=== PATIENT | female | born 1935 | race African-American/Black ===

== ENCOUNTER 2019-02-18 12:27 | Emergency (ER) | payer MEDICARE, MEDICAID ==
[~2019-02-18 12:27] MED LIST: AMLO5TAB13 PO; DONE10TA40 PO; LISI-275 PO; MET25T PO; PRAV20TA3 PO
[2019-02-18 13:03] LABS: Urine WBC None Seen /hpf (0 - 5)
[2019-02-18 13:26] LABS: Urine Bacteria FEW /hpf (None Seen); Urine Blood Negative /uL (Negative); Urine Specific Gravity 1.004 (1.001-1.035)
[2019-02-18 13:32] LABS: Basophils # (auto) 0.1 uL; Basophils % (auto) 1.3 % (0.0-2.0); Eosinophils # (auto) 0.2 uL; Eosinophils % (auto) 3.1 % (0.0-7.0); Hematocrit 42.7 % (36.0-46.0); Hemoglobin 14.1 g/dL (12.2-16.2); Lymphocytes # (auto) 2.3 uL; Lymphocytes % (auto) 37.3 % (10.0-50.0); Mean Corpuscular Hemoglobin 31.2 pg (28.0-32.0); Mean Corpuscular Volume 94.6 fL (80.0-100.0); Monocytes # (auto) 0.4 uL; Monocytes % (auto) 6.3 % (0.0-12.0); Neutrophils # (auto) 3.2 uL; Nucleated Red Blood Cells % 0.1 %; Platelet Count (auto) 157 10^3/uL (140-450); Red Blood Cells 4.52 10^6/uL (4.0-5.20); Red Cell Distribution Width 14.3 % (11.8-14.3); White Blood Cell 6.1 10^3/uL (4.4-10.8)
[2019-02-18 13:49] LABS: Alanine Aminotransferase 11 U/L (13-56); Albumin 3.8 g/dL (3.4-5.0); Anion Gap 6 (5-15); Aspartate Aminotransferase 17 U/L (15-37); BUN/Creatinine Ratio 11.5; Blood Urea Nitrogen 10 mg/dL (7-18); Carbon Dioxide 25 mmol/L (21-32); Chloride 105 mmol/L (98-107); GFR African American 80 mL/min; GFR Non-African American 66 mL/min; Glucose 106 mg/dL (74-106); Magnesium 2.2 mg/dL (1.6-2.6); Potassium 3.8 mmol/L (3.5-5.1); Sodium 136 mmol/L (136-145)
[2019-02-18 13:53] LABS: Alkaline Phosphatase 56 U/L (45-117); Bilirubin, Total 0.3 mg/dL (0.2-1.0); Total Protein 8.6 g/dL (6.4-8.2)
[2019-02-18 15:41] VITALS: BP 148/73
== END 2019-02-18 15:46 | disposition home or self-care (01) ==
LOC: ER 12:35
DX: K80.20 Calculus of gallbladder without cholecystitis without obstruction (principal); K59.00 Constipation, unspecified; F03.90 Unspecified dementia, unspecified severity, without behavioral disturbance, psychotic disturbance, mood disturbance, and anxiety; E78.5 Hyperlipidemia, unspecified; Z95.1 Presence of aortocoronary bypass graft; Z86.19 Personal history of other infectious and parasitic diseases; Z88.2 Allergy status to sulfonamides; Z88.6 Allergy status to analgesic agent
CPT/HCPCS: 36415; 74176; 80053; 81001; 83735; 85025; 93005

== ENCOUNTER 2020-04-29 15:00 | Inpatient (IN) | payer MEDICARE, MEDICAID ==
[2020-04-29] VITALS (15 sets, daily range): BP systolic 95–140; BP diastolic 44–71
[~2020-04-29] VITALS: Ht 162.6 cm; Wt 53.7 kg
[~2020-04-29 15:00] MED LIST changes: -AMLO5TAB13 PO; +AMLO5TAB15 PO
[2020-04-29] MEDS ORDERED: ETOMIDATE (2MG/ML) 20ML VIAL IV ONE ×2 (15:11→17:30)
[2020-04-29] MEDS ORDERED: SUCCINYLCHOLINE CHLORIDE 20 MG/ML 10ML VIAL IV ONE ×2 (15:13→17:30)
[2020-04-29] MEDS ORDERED: MIDAZOLAM DRIP 50 mg/50mL 50 ML IV ONE (15:31)
[2020-04-29] MEDS ORDERED: NOREPINEPHRINE 8 MG/250ML KIT 250 ML IV ONE (15:33)
[2020-04-29] MEDS: MIDAZOLAM DRIP 50 mg/50mL 50 ML IV SCH ×2 (15:40→21:55)
[2020-04-29] MEDS: NOREPINEPHRINE 8 MG/250ML KIT 250 ML IV SCH (15:40)
[2020-04-29] MEDS ORDERED: SODIUM CHLORIDE 0.9% 1,000 ML IVB ONE (16:01)
[2020-04-29] MEDS ORDERED: cefTRIAXone 1GM/50ML D5W 50 ML IV ONE (16:15)
[2020-04-29 16:28] LABS: Urine Bacteria NONE SEEN /hpf (None Seen); Urine Blood Negative /uL (Negative); Urine Budding Yeast MANY /hpf (None Seen); Urine Mucus FEW (None Seen); Urine Specific Gravity 1.015 (1.001-1.035); Urine WBC 7 /hpf (0 - 5)
[2020-04-29 16:39] LABS: Amphetamine Screen, Urine NEGATIVE (NEGATIVE); Barbiturate Scree,Urine NEGATIVE (NEGATIVE); Benzodiazephine Screen, Urine NEGATIVE (NEGATIVE); Cannabinoid Screen, Urine NEGATIVE (NEGATIVE); Cocaine Screen, Urine NEGATIVE (NEGATIVE); Opiate Scree,Urine POSITIVE (NEGATIVE); Phencyclidine Screen, Urine NEGATIVE (NEGATIVE)
[2020-04-29 16:41] LABS: Basophils # (auto) 0 10 ^3/uL (0-0.2); Basophils % (auto) 0.5 % (0.0-2.0); Eosinophils # (auto) 0 10 ^3/uL (0-0.8); Eosinophils % (auto) 0.2 % (0.0-7.0); Hemoglobin 8.1 g/dL (12.2-16.2); Lymphocytes # (auto) 1.1 10 ^3/uL (0.4-5.4); Mean Corpuscular Volume 84.5 fL (80.0-100.0); Monocytes # (auto) 0.5 10 ^3/uL (0-1.3)
[2020-04-29 16:45] LABS: Hematocrit 26.2 % (36.0-46.0); Lymphocytes % (auto) 11.4 % (10.0-50.0); Mean Corpuscular Hemoglobin 26.3 pg (28.0-32.0); Mean Corpuscular Hgb Conc. 31.1 g/dL (32.0-36.0); Monocytes % (auto) 5.5 % (0.0-12.0); Neutrophils # (auto) 7.8 10 ^3/uL (1.6-8.6); Neutrophils % (auto) 82.4 % (37.0-80.0); Platelet Count (auto) 194 10^3/uL (140-450); Red Cell Distribution Width 17.4 % (11.8-14.3); White Blood Cell 9.5 10^3/uL (4.4-10.8)
[2020-04-29 17:01] LABS: Albumin 2.2 g/dL (3.4-5.0); Anion Gap 8 (5-15); Blood Alcohol < 3.0 mg/dL (0-5); Blood Urea Nitrogen 19 mg/dL (7-18); Calcium 8.4 mg/dL (8.5-10.1); Carbon Dioxide 21 mmol/L (21-32); Chloride 104 mmol/L (98-107); Glucose 146 mg/dL (74-106); Magnesium 2.6 mg/dL (1.6-2.6); Potassium 4.9 mmol/L (3.5-5.1); Sodium 133 mmol/L (136-145)
[2020-04-29 17:05] LABS: Lactic Acid w/Reflex 3.8 mmol/L (0.4-2.0)
[2020-04-29 17:06] LABS: INR 1.28 (0.9-1.15); Partial Thromboplastin Time 25.4 sec (23.64-32.05)
[2020-04-29 17:09] LABS: Alanine Aminotransferase 23 U/L (13-56); Alkaline Phosphatase 84 U/L (45-117); Aspartate Aminotransferase 106 U/L (15-37); BUN/Creatinine Ratio 9.1; Bilirubin, Total 0.9 mg/dL (0.2-1.0); CRP High Sensitivity 7.57 mg/dL (< 0.3); GFR African American 29 mL/min; GFR Non-African American 24 mL/min; Lactate Dehydrogenase 289 U/L (84-246); Total Protein 7.7 g/dL (6.4-8.2)
[2020-04-29] MEDS ORDERED: VANCOMYCIN PER PHARMACY 1,000 MG IV SCH (17:30)
[2020-04-29] MEDS ORDERED: NITROGLYCERIN 0.4 MG SL TAB SL PRN (17:30)
[2020-04-29] MEDS ORDERED: SODIUM CHLORIDE 0.9% 1,000 ML IV ONE (17:30)
[2020-04-29] MEDS ORDERED: SODIUM CHLORIDE 0.9% 1,500 ML IV ONE (17:30)
[2020-04-29] MEDS ORDERED: MORPHINE SULF INJ 2 MG/ML SYRINGE 1ML IV PRN (17:30)
[2020-04-29] MEDS ORDERED: PIPERACILLIN-TAZOB 3.375GM 3.375 GM in D5W 5% 100 ML IV SCH (18:00)
[2020-04-29] MEDS: PIPERACILLIN-TAZOB 3.375GM 100 ML IV SCH ×2 (18:00→23:48)
[2020-04-29] MEDS ORDERED: VANCOMYCIN 750mg/250ml 250 ML IV ONE (21:00)
[2020-04-29] MEDS ORDERED: FAMOTIDINE (10MG/ML) 2ML VL IV SCH (22:00)
[2020-04-29 22:03] LABS: Lactic Acid w/Reflex 5.3 mmol/L (0.4-2.0)
[2020-04-29] MEDS ORDERED: ENOXAPARIN SOD 100 MG/1 ML SYRINGE SC ONE (22:30)
[2020-04-29] MEDS ORDERED: LACTATED RINGER'S 1,500 ML IV ONE (22:30)
[2020-04-29] MEDS: SODIUM CHLORIDE 0.9% 1,000 ML IV SCH (22:30)
[2020-04-29] MEDS ORDERED: MORPHINE SULFATE 4 MG/ML SYR/VIAL IV PRN (22:30)
[2020-04-29] MEDS ORDERED: ACETAMINOPHEN 325 MG TAB PO PRN (22:30)
[2020-04-29] MEDS ORDERED: FUROSEMIDE 20 MG/2 ML VIAL IV ONE (22:45)
[2020-04-29] MEDS: HYDROCORTISONE SOD SUCC 100 MG/2ML INJ VIAL IV SCH (23:47)
[2020-04-30] VITALS (106 sets, daily range): BP systolic 79–156; BP diastolic 43–72
[2020-04-30 00:24] LABS: Lactic Acid w/Reflex 5.8 mmol/L (0.4-2.0)
[2020-04-30] MEDS ORDERED: ASPI81CH43 PO (01:29)
[2020-04-30] MEDS ORDERED: ACET300T4 PO (01:29)
[2020-04-30] MEDS: NOREPINEPHRINE 8 MG/250ML KIT 250 ML IV SCH (02:10)
[2020-04-30] MEDS: SODIUM CHLORIDE 0.9% 1,000 ML IV SCH (03:30)
[2020-04-30 05:49] LABS: Basophils # (auto) 0 10 ^3/uL (0-0.2); Eosinophils # (auto) 0 10 ^3/uL (0-0.8); Eosinophils % (auto) 0.1 % (0.0-7.0); Hematocrit 26.7 % (36.0-46.0); Hemoglobin 8.3 g/dL (12.2-16.2); Lymphocytes # (auto) 0.5 10 ^3/uL (0.4-5.4); Lymphocytes % (auto) 3.9 % (10.0-50.0); Red Cell Distribution Width 17.4 % (11.8-14.3); White Blood Cell 12.4 10^3/uL (4.4-10.8)
[2020-04-30 05:51] LABS: Basophils % (auto) 0.1 % (0.0-2.0); Mean Corpuscular Hemoglobin 25.9 pg (28.0-32.0); Mean Corpuscular Hgb Conc. 31.1 g/dL (32.0-36.0); Mean Corpuscular Volume 83.3 fL (80.0-100.0); Monocytes # (auto) 0.3 10 ^3/uL (0-1.3); Monocytes % (auto) 2.8 % (0.0-12.0); Neutrophils # (auto) 11.5 10 ^3/uL (1.6-8.6); Neutrophils % (auto) 93.1 % (37.0-80.0); Platelet Count (auto) 240 10^3/uL (140-450)
[2020-04-30] MEDS: PIPERACILLIN-TAZOB 3.375GM 100 ML IV SCH (05:55)
[2020-04-30] MEDS: HYDROCORTISONE SOD SUCC 100 MG/2ML INJ VIAL IV SCH ×3 (05:55→18:16)
[2020-04-30] MEDS ORDERED: FUROSEMIDE 20 MG/2 ML VIAL IV SCH (06:00)
[2020-04-30] MEDS: IPRATROPIUM BROM 0.5 MG/2.5ML INH SOL NEB SCH ×5 (06:51→22:20)
[2020-04-30] MEDS ORDERED: SODIUM BICARBONATE 8.4 % INJ 50ML VIAL IV ONE (08:30)
[2020-04-30 08:41] LABS: Albumin 1.7 g/dL (3.4-5.0); BUN/Creatinine Ratio 11.4; Calcium 7.4 mg/dL (8.5-10.1); Magnesium 1.9 mg/dL (1.6-2.6); Potassium 4.9 mmol/L (3.5-5.1)
[2020-04-30 08:44] LABS: Total Protein 6.5 g/dL (6.4-8.2)
[2020-04-30] MEDS ORDERED: FAMOTIDINE (10MG/ML) 2ML VL IV SCH (10:00)
[2020-04-30] MEDS ORDERED: ENOXAPARIN SOD 40 MG/0.4 ML SYRINGE SC SCH (10:00)
[2020-04-30] MEDS: PIPERACILLIN-TAZOB 2.25GM 50 ML IV SCH ×2 (12:38→18:17)
[2020-04-30] MEDS: SODIUM BICARBONATE 50ML VIAL 50 ML in SOD CHL 0.45% 1,000 ML IV SCH (14:47)
[2020-04-30] MEDS: ALBUMIN 25% 100 ML IV SCH ×2 (14:51→22:03)
[2020-04-30 15:12] LABS: Creatinine, Urine 16 mg/dL (30.0-125.0); Sodium Urine 82 mmol/L (40-220)
[2020-04-30] MEDS ORDERED: VANCOMYCIN 1GM/250ML 250 ML IV ONE (16:00)
[2020-04-30 17:51] LABS: Urine Bacteria FEW /hpf (None Seen); Urine Blood TRACE /uL (Negative); Urine Budding Yeast MANY /hpf (None Seen); Urine Hyaline Cast FEW /lpf (0 - 2); Urine Mucus FEW (None Seen); Urine Specific Gravity 1.009 (1.001-1.035); Urine WBC 11 /hpf (0 - 5)
[2020-04-30] MEDS: DexMEDEtomidine 400 MCG in D5W 5% 96 ML IV SCH (19:09)
[2020-05-01] VITALS (112 sets, daily range): BP systolic 86–149; BP diastolic 42–87
[2020-05-01] MEDS: HYDROCORTISONE SOD SUCC 100 MG/2ML INJ VIAL IV SCH ×4 (00:19→18:22)
[2020-05-01] MEDS: PIPERACILLIN-TAZOB 2.25GM 50 ML IV SCH ×4 (00:19→18:22)
[2020-05-01] MEDS: SODIUM BICARBONATE 50ML VIAL 50 ML in SOD CHL 0.45% 1,000 ML IV SCH (01:01)
[2020-05-01] MEDS: IPRATROPIUM BROM 0.5 MG/2.5ML INH SOL NEB SCH ×6 (02:41→22:36)
[2020-05-01 05:09] LABS: Basophils # (auto) 0 10 ^3/uL (0-0.2); Basophils % (auto) 0.1 % (0.0-2.0); Eosinophils # (auto) 0 10 ^3/uL (0-0.8); Lymphocytes # (auto) 0.6 10 ^3/uL (0.4-5.4); Monocytes # (auto) 0.4 10 ^3/uL (0-1.3)
[2020-05-01 05:13] LABS: Hematocrit 20.6 % (36.0-46.0); Lymphocytes % (auto) 5.9 % (10.0-50.0); Mean Corpuscular Hemoglobin 26.2 pg (28.0-32.0); Mean Corpuscular Hgb Conc. 32.4 g/dL (32.0-36.0); Mean Corpuscular Volume 80.7 fL (80.0-100.0); Monocytes % (auto) 4.3 % (0.0-12.0); Neutrophils # (auto) 8.7 10 ^3/uL (1.6-8.6); Neutrophils % (auto) 89.7 % (37.0-80.0); Platelet Count (auto) 130 10^3/uL (140-450); Red Blood Cells 2.56 10^6/uL (4.0-5.20); Red Cell Distribution Width 16.9 % (11.8-14.3); White Blood Cell 9.7 10^3/uL (4.4-10.8)
[2020-05-01 05:21] LABS: Hemoglobin 6.7 g/dL (12.2-16.2)
[2020-05-01 05:29] LABS: Potassium 4.2 mmol/L (3.5-5.1)
[2020-05-01 05:38] LABS: Albumin 2.6 g/dL (3.4-5.0); Bilirubin, Total 0.6 mg/dL (0.2-1.0); Calcium 7.3 mg/dL (8.5-10.1); Total Protein 6.3 g/dL (6.4-8.2)
[2020-05-01] MEDS ORDERED: FUROSEMIDE 20 MG/2 ML VIAL IV ONE ×2 (08:37→08:45)
[2020-05-01] MEDS: ALBUMIN 25% 100 ML IV SCH ×2 (09:45→22:21)
[2020-05-01] MEDS: DexMEDEtomidine 400 MCG in D5W 5% 96 ML IV SCH (11:09)
[2020-05-01] MEDS ORDERED: BUMETANIDE 2.5mg/10ml (0.25 mg/ml) INJ IV ONE (11:45)
[2020-05-01] MEDS ORDERED: SODIUM CHLORIDE LOCK 0 ML ONE (13:01)
[2020-05-01] MEDS ORDERED: LIDOCAINE 2%HCL (LOCAL ANESTH.) INJ 20ML MDV ONE (13:01)
[2020-05-01] MEDS ORDERED: EPINEPHrine HCL 1 MG/1 ML AMP ONE (13:02)
[2020-05-01] MEDS ORDERED: LIDOCAINE HCL 2% TOP JELLY 5ML TOP ONE (13:02)
[2020-05-01] MEDS ORDERED: MIDAZOLAM HCL 1MG/1ML-2 ML VIAL IV ONE (13:45)
[2020-05-01] MEDS ORDERED: fentaNYL CITRATE 100 MCG/2 ML VL IV ONE (13:45)
[2020-05-01] MEDS ORDERED: fentaNYL CITRATE 100 MCG/2 ML VL ONE (13:48)
[2020-05-01] MEDS ORDERED: MIDAZOLAM HCL 5 MG/ML-1ML VIAL ONE (13:48)
[2020-05-01] MEDS: MIDAZOLAM DRIP 50 mg/50mL 50 ML IV SCH (17:20)
[2020-05-01] MEDS: NOREPINEPHRINE 8 MG/250ML KIT 250 ML IV SCH (17:30)
[2020-05-01 18:42] LABS: Hematocrit 34.6 % (36.0-46.0); Hemoglobin 11.6 g/dL (12.2-16.2)
[2020-05-01] MEDS ORDERED: PANTOPRAZOLE 40 MG/10 ML VIAL INJ IV SCH (22:00)
[2020-05-02] VITALS (86 sets, daily range): BP systolic 88–153; BP diastolic 43–91
[2020-05-02] MEDS: PIPERACILLIN-TAZOB 2.25GM 50 ML IV SCH ×4 (00:52→17:56)
[2020-05-02] MEDS: HYDROCORTISONE SOD SUCC 100 MG/2ML INJ VIAL IV SCH ×4 (00:52→17:56)
[2020-05-02] MEDS: IPRATROPIUM BROM 0.5 MG/2.5ML INH SOL NEB SCH ×6 (02:31→22:47)
[2020-05-02 04:34] LABS: Basophils # (auto) 0 10 ^3/uL (0-0.2); Basophils % (auto) 0.1 % (0.0-2.0); Eosinophils # (auto) 0 10 ^3/uL (0-0.8); Hematocrit 33.9 % (36.0-46.0); Hemoglobin 11.1 g/dL (12.2-16.2); Lymphocytes # (auto) 0.3 10 ^3/uL (0.4-5.4); Lymphocytes % (auto) 2.1 % (10.0-50.0); Mean Corpuscular Hemoglobin 26.9 pg (28.0-32.0); Mean Corpuscular Hgb Conc. 32.9 g/dL (32.0-36.0); Mean Corpuscular Volume 81.7 fL (80.0-100.0); Monocytes # (auto) 0.4 10 ^3/uL (0-1.3); Monocytes % (auto) 3.3 % (0.0-12.0); Neutrophils # (auto) 12.4 10 ^3/uL (1.6-8.6); Neutrophils % (auto) 94.5 % (37.0-80.0); Platelet Count (auto) 97 10^3/uL (140-450); Red Blood Cells 4.14 10^6/uL (4.0-5.20); Red Cell Distribution Width 16.5 % (11.8-14.3); White Blood Cell 13.2 10^3/uL (4.4-10.8)
[2020-05-02 05:00] LABS: Albumin 2.8 g/dL (3.4-5.0); BUN/Creatinine Ratio 18.1; Calcium 7.8 mg/dL (8.5-10.1); Potassium 3.9 mmol/L (3.5-5.1)
[2020-05-02 05:04] LABS: Bilirubin, Total 1.7 mg/dL (0.2-1.0); Total Protein 6.5 g/dL (6.4-8.2)
[2020-05-02] MEDS ORDERED: BUMETANIDE 2.5mg/10ml (0.25 mg/ml) INJ IV SCH (10:00)
[2020-05-02] MEDS: PANTOPRAZOLE 40 MG/10 ML VIAL INJ IV SCH (10:30)
[2020-05-02] MEDS: DexMEDEtomidine 400 MCG in D5W 5% 96 ML IV SCH ×2 (11:09→12:08)
[2020-05-02] MEDS: MIDAZOLAM DRIP 50 mg/50mL 50 ML IV SCH (15:30)
[2020-05-02] MEDS: NOREPINEPHRINE 8 MG/250ML KIT 250 ML IV SCH (15:30)
[2020-05-02] MEDS ORDERED: VANCOMYCIN 500 MG in D5W 5% 100 ML IV ONE (16:00)
[2020-05-03] VITALS (89 sets, daily range): BP systolic 88–139; BP diastolic 41–82
[2020-05-03] MEDS: IPRATROPIUM BROM 0.5 MG/2.5ML INH SOL NEB SCH ×6 (03:04→22:44)
[2020-05-03 04:17] LABS: Basophils # (auto) 0 10 ^3/uL (0-0.2); Basophils % (auto) 0.2 % (0.0-2.0); Eosinophils # (auto) 0 10 ^3/uL (0-0.8); Hematocrit 34.1 % (36.0-46.0); Hemoglobin 11.1 g/dL (12.2-16.2); Lymphocytes # (auto) 0.4 10 ^3/uL (0.4-5.4); Lymphocytes % (auto) 5.1 % (10.0-50.0); Mean Corpuscular Hemoglobin 26.5 pg (28.0-32.0); Mean Corpuscular Hgb Conc. 32.5 g/dL (32.0-36.0); Mean Corpuscular Volume 81.7 fL (80.0-100.0); Monocytes # (auto) 0.3 10 ^3/uL (0-1.3); Monocytes % (auto) 3.2 % (0.0-12.0); Neutrophils # (auto) 7.8 10 ^3/uL (1.6-8.6); Neutrophils % (auto) 91.5 % (37.0-80.0); Nucleated Red Blood Cells % 0.1 %; Platelet Count (auto) 70 10^3/uL (140-450); Red Blood Cells 4.18 10^6/uL (4.0-5.20); Red Cell Distribution Width 16.5 % (11.8-14.3); White Blood Cell 8.5 10^3/uL (4.4-10.8)
[2020-05-03 04:34] LABS: INR 1.63 (0.9-1.15)
[2020-05-03 04:39] LABS: Potassium 3.4 mmol/L (3.5-5.1)
[2020-05-03 04:47] LABS: Albumin 2.6 g/dL (3.4-5.0); BUN/Creatinine Ratio 18.8; Bilirubin, Direct 0.7 mg/dL (0-0.2); Calcium 8.3 mg/dL (8.5-10.1); Total Protein 6.1 g/dL (6.4-8.2)
[2020-05-03] MEDS: HYDROCORTISONE SOD SUCC 100 MG/2ML INJ VIAL IV SCH ×4 (05:49→18:30)
[2020-05-03] MEDS: PIPERACILLIN-TAZOB 2.25GM 50 ML IV SCH ×3 (05:49→11:54)
[2020-05-03] MEDS ORDERED: POTASSIUM CHL 20MEQ/100ML 100 ML IV ONE (08:15)
[2020-05-03] MEDS ORDERED: phytonadione 2.5 MG in SODIUM CHL 0.9% 50 ML IV ONE (08:30)
[2020-05-03] MEDS: SODIUM CHLORIDE 0.9% 1,000 ML IV SCH (08:59)
[2020-05-03] MEDS: PANTOPRAZOLE 40 MG/10 ML VIAL INJ IV SCH (10:01)
[2020-05-03] MEDS: MIDAZOLAM DRIP 50 mg/50mL 50 ML IV SCH (17:20)
[2020-05-03] MEDS: NOREPINEPHRINE 8 MG/250ML KIT 250 ML IV SCH (17:24)
[2020-05-03] MEDS: MEROPENEM 500MG IVPB 50 ML IV SCH (21:45)
[2020-05-04] VITALS (97 sets, daily range): BP systolic 105–147; BP diastolic 58–97
[2020-05-04] MEDS: HYDROCORTISONE SOD SUCC 100 MG/2ML INJ VIAL IV SCH ×4 (00:14→18:06)
[2020-05-04] MEDS: IPRATROPIUM BROM 0.5 MG/2.5ML INH SOL NEB SCH ×6 (02:29→22:24)
[2020-05-04 04:16] LABS: Basophils # (auto) 0 10 ^3/uL (0-0.2); Basophils % (auto) 0.1 % (0.0-2.0); Eosinophils # (auto) 0 10 ^3/uL (0-0.8); Lymphocytes # (auto) 0.6 10 ^3/uL (0.4-5.4); Lymphocytes % (auto) 5.1 % (10.0-50.0); Nucleated Red Blood Cells % 0.1 %; Platelet Count (auto) 91 10^3/uL (140-450)
[2020-05-04 04:18] LABS: Hematocrit 39.6 % (36.0-46.0); Hemoglobin 12.9 g/dL (12.2-16.2); Mean Corpuscular Hemoglobin 26.9 pg (28.0-32.0); Mean Corpuscular Hgb Conc. 32.6 g/dL (32.0-36.0); Mean Corpuscular Volume 82.5 fL (80.0-100.0); Monocytes # (auto) 0.5 10 ^3/uL (0-1.3); Monocytes % (auto) 3.9 % (0.0-12.0); Neutrophils # (auto) 10.6 10 ^3/uL (1.6-8.6); Neutrophils % (auto) 90.9 % (37.0-80.0); Red Blood Cells 4.81 10^6/uL (4.0-5.20); Red Cell Distribution Width 16.9 % (11.8-14.3); White Blood Cell 11.6 10^3/uL (4.4-10.8)
[2020-05-04 04:31] LABS: INR 1.33 (0.9-1.15); Partial Thromboplastin Time 31.4 sec (23.64-32.05)
[2020-05-04 04:52] LABS: BUN/Creatinine Ratio 20.8; Calcium 8.7 mg/dL (8.5-10.1); Potassium 3.2 mmol/L (3.5-5.1)
[2020-05-04] MEDS ORDERED: POTASSIUM CHL 20MEQ/100ML 100 ML IV ONE (09:00)
[2020-05-04] MEDS ORDERED: TPN PER PHARMACY 0 ML IV SCH (09:45)
[2020-05-04 10:14] LABS: Magnesium 2.1 mg/dL (1.6-2.6); Phosphorus 5.5 mg/dL (2.5-4.90)
[2020-05-04 10:16] LABS: Pre Albumin 8.5 mg/dL (20.0-40.0)
[2020-05-04] MEDS: MEROPENEM 500MG IVPB 50 ML IV SCH ×2 (10:29→23:00)
[2020-05-04] MEDS: SODIUM CHLORIDE 0.9% 1,000 ML IV SCH ×2 (10:29→17:50)
[2020-05-04] MEDS: PANTOPRAZOLE 40 MG/10 ML VIAL INJ IV SCH ×2 (10:29→22:00)
[2020-05-04] MEDS: VANCOMYCIN 500 MG in D5W 5% 100 ML IV ONE ×2 (10:29→11:01)
[2020-05-04] MEDS: DexMEDEtomidine 400 MCG in D5W 5% 96 ML IV SCH (11:09)
[2020-05-04] MEDS ORDERED: MIDAZOLAM HCL 1MG/1ML-2 ML VIAL ONE (14:11)
[2020-05-04] MEDS: MICAFUNGIN SODIUM 100 MG in SODIUM CHL 0.9% 100 ML IV SCH (15:26)
[2020-05-04] MEDS: POTASSIUM CHL 20MEQ/100ML 100 ML IV SCH ×2 (19:02→23:15)
[2020-05-04] MEDS: NOREPINEPHRINE 8 MG/250ML KIT 250 ML IV SCH (19:02)
[2020-05-04] MEDS: MIDAZOLAM DRIP 50 mg/50mL 50 ML IV SCH (19:02)
[2020-05-04] MEDS: TPN PER PHARMACY IV NR ×5 (20:00)
[2020-05-05] VITALS (65 sets, daily range): BP systolic 108–169; BP diastolic 56–110
[2020-05-05] MEDS: IPRATROPIUM BROM 0.5 MG/2.5ML INH SOL NEB SCH ×6 (02:22→22:08)
[2020-05-05] MEDS: TPN PER PHARMACY IV NR ×5 (04:25)
[2020-05-05 04:45] LABS: INR 1.37 (0.9-1.15); Partial Thromboplastin Time 32.3 sec (23.64-32.05)
[2020-05-05 04:48] LABS: Calcium 8.5 mg/dL (8.5-10.1); Potassium 3.5 mmol/L (3.5-5.1)
[2020-05-05 04:54] LABS: Albumin 2.3 g/dL (3.4-5.0); BUN/Creatinine Ratio 23.6; Bilirubin, Total 1.4 mg/dL (0.2-1.0); Phosphorus 4.8 mg/dL (2.5-4.90); Total Protein 6.1 g/dL (6.4-8.2)
[2020-05-05] MEDS: ACCU-CHEK COMFORT CURVE STRIP VI SCH ×4 (06:00→18:18)
[2020-05-05] MEDS: InsuLIN REG 1unit/0.01ml Soln (100units/ml) SC SCH ×4 (06:00→18:19)
[2020-05-05] MEDS: HYDROCORTISONE SOD SUCC 100 MG/2ML INJ VIAL IV SCH ×4 (06:00→18:37)
[2020-05-05 09:39] LABS: Hepatitis B Surface Antibody Positive
[2020-05-05 09:43] LABS: Basophils # (auto) 0 10 ^3/uL (0-0.2); Basophils % (auto) 0.2 % (0.0-2.0); Eosinophils # (auto) 0 10 ^3/uL (0-0.8); Eosinophils % (auto) 0.1 % (0.0-7.0); Hematocrit 36.5 % (36.0-46.0); Hemoglobin 11.5 g/dL (12.2-16.2); Lymphocytes # (auto) 0.3 10 ^3/uL (0.4-5.4); Lymphocytes % (auto) 3.1 % (10.0-50.0); Mean Corpuscular Hemoglobin 26.2 pg (28.0-32.0); Mean Corpuscular Hgb Conc. 31.5 g/dL (32.0-36.0); Mean Corpuscular Volume 83.1 fL (80.0-100.0); Monocytes # (auto) 0.5 10 ^3/uL (0-1.3); Monocytes % (auto) 5.1 % (0.0-12.0); Neutrophils # (auto) 9.7 10 ^3/uL (1.6-8.6); Neutrophils % (auto) 91.5 % (37.0-80.0); Platelet Count (auto) 81 10^3/uL (140-450); Red Blood Cells 4.39 10^6/uL (4.0-5.20); Red Cell Distribution Width 17.3 % (11.8-14.3); White Blood Cell 10.6 10^3/uL (4.4-10.8)
[2020-05-05] MEDS: PANTOPRAZOLE 40 MG/10 ML VIAL INJ IV SCH ×2 (10:00→22:00)
[2020-05-05] MEDS: MICAFUNGIN SODIUM 100 MG in SODIUM CHL 0.9% 100 ML IV SCH (10:00)
[2020-05-05 10:12] LABS: Hepatitis A Total Antibody Positive
[2020-05-05] MEDS: DexMEDEtomidine 400 MCG in D5W 5% 96 ML IV SCH (11:09)
[2020-05-05] MEDS: MEROPENEM 500MG IVPB 50 ML IV SCH ×2 (11:25→22:00)
[2020-05-05 13:26] LABS: Hepatitis B Surface Antigen Negative (Negative); Hepatitis C Antibody Negative (Negative)
[2020-05-05 13:28] LABS: Hepatitis B Core Total AB Positive
[2020-05-05] MEDS: LORazepam 2MG/ML-1ML VIAL IV PRN (17:03)
[2020-05-05] MEDS: MIDAZOLAM DRIP 50 mg/50mL 50 ML IV SCH (17:20)
[2020-05-05] MEDS: NOREPINEPHRINE 8 MG/250ML KIT 250 ML IV SCH (17:30)
[2020-05-05 18:34] LABS: Lactic Acid w/Reflex 2.2 mmol/L (0.4-2.0)
[2020-05-05] MEDS ORDERED: TPN PER PHARMACY IV NR ×5 (20:00)
[2020-05-06] VITALS (60 sets, daily range): BP systolic 118–161; BP diastolic 63–95
[2020-05-06] MEDS: IPRATROPIUM BROM 0.5 MG/2.5ML INH SOL NEB SCH ×6 (01:53→22:24)
[2020-05-06 05:02] LABS: Basophils # (auto) 0 10 ^3/uL (0-0.2); Basophils % (auto) 0.2 % (0.0-2.0); Eosinophils # (auto) 0 10 ^3/uL (0-0.8); Hematocrit 32.4 % (36.0-46.0); Hemoglobin 10.6 g/dL (12.2-16.2); Lymphocytes # (auto) 0.2 10 ^3/uL (0.4-5.4); Mean Corpuscular Hemoglobin 27.1 pg (28.0-32.0); Mean Corpuscular Hgb Conc. 32.7 g/dL (32.0-36.0); Monocytes # (auto) 0.3 10 ^3/uL (0-1.3); Monocytes % (auto) 3.6 % (0.0-12.0); Neutrophils # (auto) 7.2 10 ^3/uL (1.6-8.6); Neutrophils % (auto) 94.2 % (37.0-80.0); Platelet Count (auto) 68 10^3/uL (140-450); Red Blood Cells 3.91 10^6/uL (4.0-5.20); White Blood Cell 7.6 10^3/uL (4.4-10.8)
[2020-05-06 05:29] LABS: Albumin 2.1 g/dL (3.4-5.0); BUN/Creatinine Ratio 29.2; Bilirubin, Total 1.3 mg/dL (0.2-1.0); Magnesium 1.9 mg/dL (1.6-2.6); Phosphorus 2.8 mg/dL (2.5-4.90); Total Protein 5.9 g/dL (6.4-8.2)
[2020-05-06] MEDS: HYDROCORTISONE SOD SUCC 100 MG/2ML INJ VIAL IV SCH ×4 (06:25→18:00)
[2020-05-06] MEDS: ACCU-CHEK COMFORT CURVE STRIP VI SCH ×4 (06:27→18:00)
[2020-05-06] MEDS: InsuLIN REG 1unit/0.01ml Soln (100units/ml) SC SCH ×4 (06:27→18:00)
[2020-05-06] MEDS ORDERED: POTASSIUM PHOSPHATE 44 MEQ in D5W 5% 250 ML IV ONE (08:30)
[2020-05-06] MEDS: MEROPENEM 500MG IVPB 50 ML IV SCH ×2 (09:14→22:00)
[2020-05-06] MEDS: PANTOPRAZOLE 40 MG/10 ML VIAL INJ IV SCH ×2 (09:14→22:00)
[2020-05-06] MEDS: DexMEDEtomidine 400 MCG in D5W 5% 96 ML IV SCH (11:09)
[2020-05-06] MEDS: MICAFUNGIN SODIUM 100 MG in SODIUM CHL 0.9% 100 ML IV SCH (11:44)
[2020-05-06] MEDS ORDERED: EPINEPHrine HCL 0.5 ML NEB NEB ONE (13:00)
[2020-05-06] MEDS ORDERED: VANCOMYCIN 500 MG in D5W 5% 100 ML IV ONE (16:00)
[2020-05-06] MEDS ORDERED: POTASSIUM CHL 20MEQ/100ML 100 ML IV ONE (16:00)
[2020-05-06] MEDS: MIDAZOLAM DRIP 50 mg/50mL 50 ML IV SCH (17:20)
[2020-05-06] MEDS: NOREPINEPHRINE 8 MG/250ML KIT 250 ML IV SCH (17:30)
[2020-05-06] MEDS ORDERED: TPN PER PHARMACY IV NR ×10 (20:00)
[2020-05-07] VITALS (32 sets, daily range): BP systolic 118–180; BP diastolic 59–96
[2020-05-07] MEDS: IPRATROPIUM BROM 0.5 MG/2.5ML INH SOL NEB SCH ×5 (02:01→22:34)
[2020-05-07 04:35] LABS: Albumin 2.1 g/dL (3.4-5.0); BUN/Creatinine Ratio 30.8; Calcium 8.3 mg/dL (8.5-10.1); Potassium 3.8 mmol/L (3.5-5.1)
[2020-05-07 04:38] LABS: Bilirubin, Total 1.5 mg/dL (0.2-1.0); Total Protein 6.6 g/dL (6.4-8.2)
[2020-05-07 04:49] LABS: Phosphorus 3.2 mg/dL (2.5-4.90)
[2020-05-07] MEDS: InsuLIN REG 1unit/0.01ml Soln (100units/ml) SC SCH ×4 (06:00→17:53)
[2020-05-07] MEDS: HYDROCORTISONE SOD SUCC 100 MG/2ML INJ VIAL IV SCH ×4 (06:00→17:47)
[2020-05-07] MEDS: ACCU-CHEK COMFORT CURVE STRIP VI SCH ×4 (06:49→17:47)
[2020-05-07] MEDS ORDERED: LABETALOL HCL 5 MG/ML 4ML SYRINGE IV ONE ×2 (07:30→07:32)
[2020-05-07] MEDS: LORazepam 2MG/ML-1ML VIAL IV PRN (09:30)
[2020-05-07] MEDS ORDERED: FUROSEMIDE 40 MG/4 ML VIAL ONE (09:42)
[2020-05-07] MEDS ORDERED: FUROSEMIDE 40 MG/4 ML VIAL IV ONE (09:45)
[2020-05-07] MEDS: PANTOPRAZOLE 40 MG/10 ML VIAL INJ IV SCH ×2 (10:15→21:15)
[2020-05-07] MEDS: MICAFUNGIN SODIUM 100 MG in SODIUM CHL 0.9% 100 ML IV SCH (10:18)
[2020-05-07] MEDS ORDERED: VANCOMYCIN 500 MG in D5W 5% 100 ML IV ONE (11:00)
[2020-05-07] MEDS: MEROPENEM 500MG IVPB 50 ML IV SCH ×2 (11:00→21:15)
[2020-05-07] MEDS: DexMEDEtomidine 400 MCG in D5W 5% 96 ML IV SCH (11:09)
[2020-05-07] MEDS: MIDAZOLAM DRIP 50 mg/50mL 50 ML IV SCH (13:30)
[2020-05-07] MEDS: NOREPINEPHRINE 8 MG/250ML KIT 250 ML IV SCH (16:20)
[2020-05-07] MEDS ORDERED: TPN PER PHARMACY IV NR ×9 (20:00)
[2020-05-08] VITALS (15 sets, daily range): BP systolic 134–154; BP diastolic 71–94
[2020-05-08] MEDS: LORazepam 2MG/ML-1ML VIAL IV PRN (00:42)
[2020-05-08] MEDS: ACCU-CHEK COMFORT CURVE STRIP VI SCH ×5 (00:43→23:56)
[2020-05-08] MEDS: HYDROCORTISONE SOD SUCC 100 MG/2ML INJ VIAL IV SCH ×5 (00:43→23:56)
[2020-05-08] MEDS: InsuLIN REG 1unit/0.01ml Soln (100units/ml) SC SCH ×5 (00:47→23:56)
[2020-05-08] MEDS: IPRATROPIUM BROM 0.5 MG/2.5ML INH SOL NEB SCH ×6 (02:25→22:14)
[2020-05-08 04:23] LABS: Basophils # (auto) 0 10 ^3/uL (0-0.2); Basophils % (auto) 0.1 % (0.0-2.0); Eosinophils # (auto) 0 10 ^3/uL (0-0.8); Hemoglobin 11.3 g/dL (12.2-16.2); Lymphocytes # (auto) 0.3 10 ^3/uL (0.4-5.4); Monocytes # (auto) 0.5 10 ^3/uL (0-1.3)
[2020-05-08 04:25] LABS: Hematocrit 35.3 % (36.0-46.0); Mean Corpuscular Hemoglobin 26.5 pg (28.0-32.0); Mean Corpuscular Hgb Conc. 32.1 g/dL (32.0-36.0); Mean Corpuscular Volume 82.7 fL (80.0-100.0); Monocytes % (auto) 3.7 % (0.0-12.0); Neutrophils # (auto) 12.1 10 ^3/uL (1.6-8.6); Neutrophils % (auto) 94.2 % (37.0-80.0); Nucleated Red Blood Cells % 0.1 %; Platelet Count (auto) 59 10^3/uL (140-450); Red Blood Cells 4.27 10^6/uL (4.0-5.20); Red Cell Distribution Width 17.4 % (11.8-14.3); White Blood Cell 12.9 10^3/uL (4.4-10.8)
[2020-05-08 04:46] LABS: Albumin 2.3 g/dL (3.4-5.0); Calcium 8.9 mg/dL (8.5-10.1); Magnesium 2.1 mg/dL (1.6-2.6); Potassium 3.8 mmol/L (3.5-5.1)
[2020-05-08 04:49] LABS: BUN/Creatinine Ratio 35.9; Bilirubin, Total 1.2 mg/dL (0.2-1.0); Phosphorus 3.1 mg/dL (2.5-4.90); Total Protein 6.6 g/dL (6.4-8.2)
[2020-05-08] MEDS: PANTOPRAZOLE 40 MG/10 ML VIAL INJ IV SCH ×2 (10:36→22:05)
[2020-05-08] MEDS: FUROSEMIDE 40 MG/4 ML VIAL IV SCH (10:36)
[2020-05-08] MEDS: MICAFUNGIN SODIUM 100 MG in SODIUM CHL 0.9% 100 ML IV SCH (10:37)
[2020-05-08] MEDS: MEROPENEM 500MG IVPB 50 ML IV SCH ×2 (10:37→22:05)
[2020-05-08] MEDS: LABETALOL HCL 5 MG/ML 4ML SYRINGE IV PRN (17:58)
[2020-05-08] MEDS ORDERED: VANCOMYCIN 500 MG in D5W 5% 100 ML IV ONE (18:00)
[2020-05-08] MEDS ORDERED: TPN PER PHARMACY IV NR ×10 (20:00)
[2020-05-09] MEDS: LABETALOL HCL 5 MG/ML 4ML SYRINGE IV PRN ×2 (00:11→16:57)
[2020-05-09] MEDS: IPRATROPIUM BROM 0.5 MG/2.5ML INH SOL NEB SCH ×6 (02:13→21:57)
[2020-05-09 05:25] VITALS: BP 144/89
[2020-05-09] MEDS: HYDROCORTISONE SOD SUCC 100 MG/2ML INJ VIAL IV SCH ×2 (06:00→11:24)
[2020-05-09 06:15] LABS: Basophils # (auto) 0 10 ^3/uL (0-0.2); Basophils % (auto) 0.1 % (0.0-2.0); Eosinophils # (auto) 0 10 ^3/uL (0-0.8); Hemoglobin 11.4 g/dL (12.2-16.2); Lymphocytes # (auto) 0.2 10 ^3/uL (0.4-5.4); Lymphocytes % (auto) 1.3 % (10.0-50.0); Mean Corpuscular Hemoglobin 27.1 pg (28.0-32.0); Mean Corpuscular Hgb Conc. 32.4 g/dL (32.0-36.0); Mean Corpuscular Volume 83.6 fL (80.0-100.0); Monocytes # (auto) 0.6 10 ^3/uL (0-1.3); Monocytes % (auto) 4.4 % (0.0-12.0); Neutrophils # (auto) 13.2 10 ^3/uL (1.6-8.6); Neutrophils % (auto) 94.2 % (37.0-80.0); Platelet Count (auto) 65 10^3/uL (140-450); Red Blood Cells 4.19 10^6/uL (4.0-5.20); Red Cell Distribution Width 17.7 % (11.8-14.3); White Blood Cell 14.1 10^3/uL (4.4-10.8)
[2020-05-09 06:26] LABS: Potassium 3.9 mmol/L (3.5-5.1)
[2020-05-09] MEDS: ACCU-CHEK COMFORT CURVE STRIP VI SCH ×4 (06:33→23:50)
[2020-05-09] MEDS: InsuLIN REG 1unit/0.01ml Soln (100units/ml) SC SCH ×4 (06:33→23:50)
[2020-05-09 06:42] LABS: Albumin 2.2 g/dL (3.4-5.0); Bilirubin, Total 1.2 mg/dL (0.2-1.0); Calcium 8.7 mg/dL (8.5-10.1); Magnesium 2.5 mg/dL (1.6-2.6); Phosphorus 3.1 mg/dL (2.5-4.90); Total Protein 6.6 g/dL (6.4-8.2)
[2020-05-09] MEDS: FUROSEMIDE 40 MG/4 ML VIAL IV SCH (08:19)
[2020-05-09] MEDS: PANTOPRAZOLE 40 MG/10 ML VIAL INJ IV SCH ×2 (08:19→22:09)
[2020-05-09] MEDS: MEROPENEM 500MG IVPB 50 ML IV SCH ×2 (08:19→22:09)
[2020-05-09 09:00] VITALS: BP 136/69
[2020-05-09] MEDS ORDERED: MICAFUNGIN SODIUM 100 MG in SODIUM CHL 0.9% 100 ML IV ONE (11:30)
[2020-05-09] MEDS: MICAFUNGIN SODIUM 100 MG in SODIUM CHL 0.9% 100 ML IV SCH (12:04)
[2020-05-09 13:00] VITALS: BP 139/71
[2020-05-09 16:42] VITALS: BP 159/103
[2020-05-09] MEDS ORDERED: TPN PER PHARMACY IV NR ×10 (20:00)
[2020-05-09 22:00] VITALS: BP 157/97
[2020-05-09] MEDS: LORazepam 2MG/ML-1ML VIAL IV PRN (23:01)
[2020-05-10] VITALS (7 sets, daily range): BP systolic 133–155; BP diastolic 76–103
[2020-05-10] MEDS: IPRATROPIUM BROM 0.5 MG/2.5ML INH SOL NEB SCH ×6 (02:52→22:18)
[2020-05-10] MEDS: LABETALOL HCL 5 MG/ML 4ML SYRINGE IV PRN (04:55)
[2020-05-10 06:29] LABS: Basophils # (auto) 0 10 ^3/uL (0-0.2); Basophils % (auto) 0.2 % (0.0-2.0); Eosinophils # (auto) 0 10 ^3/uL (0-0.8); Hemoglobin 11.6 g/dL (12.2-16.2)
[2020-05-10] MEDS: ACCU-CHEK COMFORT CURVE STRIP VI SCH ×3 (06:29→18:34)
[2020-05-10] MEDS: InsuLIN REG 1unit/0.01ml Soln (100units/ml) SC SCH ×3 (06:30→18:00)
[2020-05-10 06:32] LABS: Eosinophils % (auto) 0.3 % (0.0-7.0); Hematocrit 36.8 % (36.0-46.0); Lymphocytes # (auto) 0.5 10 ^3/uL (0.4-5.4); Lymphocytes % (auto) 3.3 % (10.0-50.0); Mean Corpuscular Hemoglobin 26.7 pg (28.0-32.0); Mean Corpuscular Hgb Conc. 31.6 g/dL (32.0-36.0); Mean Corpuscular Volume 84.7 fL (80.0-100.0); Neutrophils # (auto) 12.6 10 ^3/uL (1.6-8.6); Neutrophils % (auto) 89.2 % (37.0-80.0); Platelet Count (auto) 76 10^3/uL (140-450); Red Blood Cells 4.35 10^6/uL (4.0-5.20); Red Cell Distribution Width 18.2 % (11.8-14.3); White Blood Cell 14.1 10^3/uL (4.4-10.8)
[2020-05-10 06:44] LABS: Albumin 2.2 g/dL (3.4-5.0); Calcium 8.8 mg/dL (8.5-10.1); Magnesium 2.6 mg/dL (1.6-2.6); Potassium 4.6 mmol/L (3.5-5.1)
[2020-05-10 06:48] LABS: BUN/Creatinine Ratio 42.7; Bilirubin, Total 1.5 mg/dL (0.2-1.0); Pre Albumin 14.2 mg/dL (20.0-40.0); Total Protein 6.7 g/dL (6.4-8.2)
[2020-05-10] MEDS: PANTOPRAZOLE 40 MG/10 ML VIAL INJ IV SCH ×2 (09:24→21:55)
[2020-05-10] MEDS: FUROSEMIDE 40 MG/4 ML VIAL IV SCH (09:24)
[2020-05-10] MEDS: MICAFUNGIN SODIUM 100 MG in SODIUM CHL 0.9% 100 ML IV SCH (09:25)
[2020-05-10] MEDS ORDERED: MICAFUNGIN SODIUM 100 MG in SODIUM CHL 0.9% 100 ML IV SCH (10:00)
[2020-05-10] MEDS: SODIUM CHLORIDE 0.9% 1,000 ML IV SCH (10:31)
[2020-05-10] MEDS: MEROPENEM 500MG IVPB 50 ML IV SCH ×2 (10:31→21:55)
[2020-05-10] MEDS ORDERED: VANCOMYCIN 500 MG in D5W 5% 100 ML IV ONE ×2 (11:00→13:00)
[2020-05-10] MEDS ORDERED: TPN PER PHARMACY IV NR ×7 (20:00)
[2020-05-10 20:41] LABS: Folate (Folic Acid) 15.07 ng/mL (5.38-24)
[2020-05-11] VITALS (13 sets, daily range): BP systolic 93–155; BP diastolic 50–96
[2020-05-11] MEDS: ACCU-CHEK COMFORT CURVE STRIP VI SCH ×4 (00:13→18:08)
[2020-05-11] MEDS: IPRATROPIUM BROM 0.5 MG/2.5ML INH SOL NEB SCH ×6 (01:59→22:18)
[2020-05-11] MEDS: SODIUM CHLORIDE 0.9% 1,000 ML IV SCH (02:43)
[2020-05-11 04:04] LABS: Basophils # (auto) 0 10 ^3/uL (0-0.2); Eosinophils # (auto) 0 10 ^3/uL (0-0.8); Eosinophils % (auto) 0.3 % (0.0-7.0); Hemoglobin 11.3 g/dL (12.2-16.2); Lymphocytes # (auto) 0.3 10 ^3/uL (0.4-5.4); Monocytes # (auto) 1.1 10 ^3/uL (0-1.3); Monocytes % (auto) 7.6 % (0.0-12.0)
[2020-05-11 04:08] LABS: Basophils % (auto) 0.1 % (0.0-2.0); Hematocrit 35.4 % (36.0-46.0); Mean Corpuscular Hemoglobin 26.8 pg (28.0-32.0); Mean Corpuscular Volume 83.7 fL (80.0-100.0); Neutrophils # (auto) 13.3 10 ^3/uL (1.6-8.6); Nucleated Red Blood Cells % 0.1 %; Platelet Count (auto) 79 10^3/uL (140-450); Red Blood Cells 4.22 10^6/uL (4.0-5.20); Red Cell Distribution Width 18.3 % (11.8-14.3); White Blood Cell 14.7 10^3/uL (4.4-10.8)
[2020-05-11 04:25] LABS: Albumin 2.1 g/dL (3.4-5.0); Calcium 8.9 mg/dL (8.5-10.1); Magnesium 2.3 mg/dL (1.6-2.6); Potassium 3.7 mmol/L (3.5-5.1)
[2020-05-11 04:29] LABS: BUN/Creatinine Ratio 49.6; Phosphorus 3.8 mg/dL (2.5-4.90); Total Protein 6.7 g/dL (6.4-8.2)
[2020-05-11] MEDS: InsuLIN REG 1unit/0.01ml Soln (100units/ml) SC SCH ×4 (05:53→18:00)
[2020-05-11] MEDS: LORazepam 2MG/ML-1ML VIAL IV PRN (06:30)
[2020-05-11] MEDS ORDERED: SOD CHL 0.45% 1,000 ML IV SCH ×2 (09:45→20:00)
[2020-05-11] MEDS ORDERED: levoFLOXacin 500MG 100 ML IV ONE (10:00)
[2020-05-11] MEDS: MICAFUNGIN SODIUM 100 MG in SODIUM CHL 0.9% 100 ML IV SCH (10:07)
[2020-05-11] MEDS: PANTOPRAZOLE 40 MG/10 ML VIAL INJ IV SCH ×2 (10:08→22:00)
[2020-05-11] MEDS: HYDROmorphone HCL 2 MG/ML VL IV PRN ×2 (12:53→22:41)
[2020-05-11] MEDS ORDERED: TPN PER PHARMACY IV NR ×7 (20:00)
[2020-05-12] VITALS (8 sets, daily range): BP systolic 98–141; BP diastolic 56–83
[2020-05-12] MEDS: IPRATROPIUM BROM 0.5 MG/2.5ML INH SOL NEB SCH ×6 (02:41→21:58)
[2020-05-12 05:01] LABS: Basophils # (auto) 0 10 ^3/uL (0-0.2); Basophils % (auto) 0.1 % (0.0-2.0); Eosinophils # (auto) 0.1 10 ^3/uL (0-0.8); Eosinophils % (auto) 0.7 % (0.0-7.0); Hematocrit 32.3 % (36.0-46.0); Hemoglobin 10.5 g/dL (12.2-16.2); Lymphocytes # (auto) 0.4 10 ^3/uL (0.4-5.4); Lymphocytes % (auto) 2.9 % (10.0-50.0); Mean Corpuscular Hgb Conc. 32.4 g/dL (32.0-36.0); Mean Corpuscular Volume 83.3 fL (80.0-100.0); Monocytes % (auto) 6.8 % (0.0-12.0); Neutrophils # (auto) 13.5 10 ^3/uL (1.6-8.6); Neutrophils % (auto) 89.5 % (37.0-80.0); Platelet Count (auto) 75 10^3/uL (140-450); Red Blood Cells 3.88 10^6/uL (4.0-5.20); Red Cell Distribution Width 19.1 % (11.8-14.3)
[2020-05-12 05:20] LABS: Potassium 3.1 mmol/L (3.5-5.1)
[2020-05-12 05:29] LABS: BUN/Creatinine Ratio 48.9; Calcium 8.3 mg/dL (8.5-10.1)
[2020-05-12] MEDS: InsuLIN REG 1unit/0.01ml Soln (100units/ml) SC SCH ×4 (06:00→17:43)
[2020-05-12] MEDS: ACCU-CHEK COMFORT CURVE STRIP VI SCH ×4 (06:19→17:43)
[2020-05-12 08:46] LABS: Albumin 1.8 g/dL (3.4-5.0); Magnesium 2.1 mg/dL (1.6-2.6); Phosphorus 2.8 mg/dL (2.5-4.90)
[2020-05-12] MEDS: POTASSIUM CHL 20MEQ/100ML 100 ML IV SCH ×2 (09:12→10:14)
[2020-05-12] MEDS: MICAFUNGIN SODIUM 100 MG in SODIUM CHL 0.9% 100 ML IV SCH (10:00)
[2020-05-12] MEDS: PANTOPRAZOLE 40 MG/10 ML VIAL INJ IV SCH ×2 (11:04→21:12)
[2020-05-12] MEDS: levoFLOXacin 250MG 50 ML IV SCH (11:04)
[2020-05-12] MEDS: HYDROmorphone HCL 2 MG/ML VL IV PRN (11:06)
[2020-05-12] MEDS: SOD CHL 0.45% 1,000 ML IV SCH (12:45)
[2020-05-12] MEDS ORDERED: VANCOMYCIN 500 MG in D5W 5% 100 ML IV ONE (14:15)
[2020-05-12] MEDS ORDERED: TPN PER PHARMACY IV NR ×8 (20:00)
[2020-05-13] VITALS: BP 135/72
[2020-05-13] MEDS: ACCU-CHEK COMFORT CURVE STRIP VI SCH ×4 (00:01→17:38)
[2020-05-13] MEDS: IPRATROPIUM BROM 0.5 MG/2.5ML INH SOL NEB SCH ×6 (02:14→22:46)
[2020-05-13] MEDS: SOD CHL 0.45% 1,000 ML IV SCH ×2 (02:16→15:25)
[2020-05-13] MEDS: HYDROmorphone HCL 2 MG/ML VL IV PRN ×3 (02:50→20:58)
[2020-05-13 03:56] VITALS: BP 127/68
[2020-05-13 04:37] LABS: Potassium 3.3 mmol/L (3.5-5.1)
[2020-05-13 04:44] LABS: Albumin 1.8 g/dL (3.4-5.0); BUN/Creatinine Ratio 49.2; Calcium 8.1 mg/dL (8.5-10.1); Magnesium 1.9 mg/dL (1.6-2.6)
[2020-05-13 04:46] LABS: Bilirubin, Total 2.8 mg/dL (0.2-1.0); Phosphorus 2.3 mg/dL (2.5-4.90)
[2020-05-13] MEDS: InsuLIN REG 1unit/0.01ml Soln (100units/ml) SC SCH ×4 (06:00→17:38)
[2020-05-13 08:00] VITALS: BP 138/72
[2020-05-13] MEDS: levoFLOXacin 250MG 50 ML IV SCH (10:01)
[2020-05-13] MEDS: PANTOPRAZOLE 40 MG/10 ML VIAL INJ IV SCH ×2 (10:01→20:57)
[2020-05-13] MEDS ORDERED: FUROSEMIDE 20 MG/2 ML VIAL IV ONE (10:30)
[2020-05-13] MEDS ORDERED: POTASSIUM CHL 20MEQ/100ML 100 ML IV SCH (11:00)
[2020-05-13] MEDS ORDERED: POTASSIUM PHOSPHATE 44 MEQ in D5W 5% 250 ML IV ONE (11:00)
[2020-05-13] MEDS: MICAFUNGIN SODIUM 100 MG in SODIUM CHL 0.9% 100 ML IV SCH (11:00)
[2020-05-13 11:45] VITALS: BP 146/71
[2020-05-13 15:45] VITALS: BP 120/72
[2020-05-13 15:52] LABS: Anion Gap 7 (5-15); BUN/Creatinine Ratio 46.7; Blood Urea Nitrogen 57 mg/dL (7-18); Calcium 7.9 mg/dL (8.5-10.1); Carbon Dioxide 27 mmol/L (21-32); Chloride 110 mmol/L (98-107); GFR African American 54 mL/min; GFR Non-African American 44 mL/min; Glucose 81 mg/dL (74-106); Magnesium 1.8 mg/dL (1.6-2.6); Potassium 3.2 mmol/L (3.5-5.1); Sodium 144 mmol/L (136-145)
[2020-05-13 19:59] VITALS: BP 124/71
[2020-05-13] MEDS ORDERED: TPN PER PHARMACY IV NR ×8 (20:00)
[2020-05-14] VITALS: BP 122/66
[2020-05-14] MEDS: IPRATROPIUM BROM 0.5 MG/2.5ML INH SOL NEB SCH ×6 (02:38→22:53)
[2020-05-14 04:00] VITALS: BP 131/96
[2020-05-14] MEDS: SOD CHL 0.45% 1,000 ML IV SCH ×2 (05:08→15:23)
[2020-05-14 05:48] LABS: Albumin 1.8 g/dL (3.4-5.0); Calcium 7.7 mg/dL (8.5-10.1); Magnesium 1.8 mg/dL (1.6-2.6); Potassium 3.4 mmol/L (3.5-5.1)
[2020-05-14 05:51] LABS: BUN/Creatinine Ratio 41.2
[2020-05-14 05:53] LABS: Bilirubin, Total 3.3 mg/dL (0.2-1.0); Phosphorus 4.5 mg/dL (2.5-4.90); Total Protein 6.3 g/dL (6.4-8.2)
[2020-05-14] MEDS: InsuLIN REG 1unit/0.01ml Soln (100units/ml) SC SCH ×4 (06:00→17:31)
[2020-05-14] MEDS: ACCU-CHEK COMFORT CURVE STRIP VI SCH ×4 (06:00→17:32)
[2020-05-14 07:45] VITALS: BP 130/62
[2020-05-14] MEDS: HYDROmorphone HCL 2 MG/ML VL IV PRN ×3 (07:49→21:10)
[2020-05-14] MEDS: PANTOPRAZOLE 40 MG/10 ML VIAL INJ IV SCH ×2 (09:18→21:07)
[2020-05-14] MEDS: levoFLOXacin 250MG 50 ML IV SCH (09:18)
[2020-05-14] MEDS: MICAFUNGIN SODIUM 100 MG in SODIUM CHL 0.9% 100 ML IV SCH (11:19)
[2020-05-14 12:00] VITALS: BP 104/68
[2020-05-14] MEDS ORDERED: POTASSIUM CHL 20MEQ/100ML 100 ML IV ONE ×2 (12:00→14:00)
[2020-05-14] MEDS ORDERED: POTASSIUM CHL 20MEQ/100ML 100 ML IV SCH (12:45)
[2020-05-14] MEDS ORDERED: MAGNESIUM SULFATE 1GM/100ML 100 ML IV SCH (13:00)
[2020-05-14] MEDS ORDERED: MAGNESIUM SULFATE 1GM/100ML 100 ML IV ONE ×2 (13:00→13:15)
[2020-05-14] MEDS ORDERED: VANCOMYCIN 750mg/250ml 250 ML IV ONE (13:30)
[2020-05-14 16:00] VITALS: BP 109/55
[2020-05-14 19:05] LABS: Pre Albumin 8.9 mg/dL (20.0-40.0)
[2020-05-14 20:00] VITALS: BP 99/64
[2020-05-14] MEDS ORDERED: TPN PER PHARMACY IV NR ×7 (20:00)
[2020-05-15] VITALS (7 sets, daily range): BP systolic 95–149; BP diastolic 55–78
[2020-05-15] MEDS: IPRATROPIUM BROM 0.5 MG/2.5ML INH SOL NEB SCH ×6 (02:46→22:46)
[2020-05-15] MEDS: HYDROmorphone HCL 2 MG/ML VL IV PRN ×2 (04:52→22:59)
[2020-05-15 04:57] LABS: Basophils # (auto) 0 10 ^3/uL (0-0.2); Basophils % (auto) 0.3 % (0.0-2.0); Eosinophils # (auto) 0.1 10 ^3/uL (0-0.8); Eosinophils % (auto) 1.2 % (0.0-7.0); Hematocrit 29.8 % (36.0-46.0); Hemoglobin 9.9 g/dL (12.2-16.2); Lymphocytes # (auto) 0.4 10 ^3/uL (0.4-5.4); Lymphocytes % (auto) 4.1 % (10.0-50.0); Mean Corpuscular Hemoglobin 27.4 pg (28.0-32.0); Mean Corpuscular Hgb Conc. 33.1 g/dL (32.0-36.0); Mean Corpuscular Volume 82.6 fL (80.0-100.0); Monocytes # (auto) 0.7 10 ^3/uL (0-1.3); Monocytes % (auto) 6.8 % (0.0-12.0); Neutrophils % (auto) 87.6 % (37.0-80.0); Nucleated Red Blood Cells % 0.1 %; Platelet Count (auto) 68 10^3/uL (140-450); Red Cell Distribution Width 19.1 % (11.8-14.3); White Blood Cell 10.2 10^3/uL (4.4-10.8)
[2020-05-15 05:15] LABS: Albumin 1.6 g/dL (3.4-5.0); BUN/Creatinine Ratio 41.6; Calcium 7.6 mg/dL (8.5-10.1); Magnesium 2.5 mg/dL (1.6-2.6); Potassium 3.8 mmol/L (3.5-5.1)
[2020-05-15 05:18] LABS: Bilirubin, Total 3.3 mg/dL (0.2-1.0); Phosphorus 3.3 mg/dL (2.5-4.90); Total Protein 6.1 g/dL (6.4-8.2)
[2020-05-15] MEDS: InsuLIN REG 1unit/0.01ml Soln (100units/ml) SC SCH ×4 (05:47→18:00)
[2020-05-15] MEDS: ACCU-CHEK COMFORT CURVE STRIP VI SCH ×4 (05:47→18:01)
[2020-05-15] MEDS: levoFLOXacin 250MG 50 ML IV SCH (10:21)
[2020-05-15] MEDS: PANTOPRAZOLE 40 MG/10 ML VIAL INJ IV SCH ×2 (10:23→22:00)
[2020-05-15] MEDS: MICAFUNGIN SODIUM 100 MG in SODIUM CHL 0.9% 100 ML IV SCH (10:33)
[2020-05-15] MEDS: SOD CHL 0.45% 1,000 ML IV SCH (12:13)
[2020-05-15] MEDS ORDERED: TPN PER PHARMACY IV NR ×9 (20:00)
[2020-05-16] VITALS (8 sets, daily range): BP systolic 100–142; BP diastolic 56–87
[2020-05-16] MEDS: IPRATROPIUM BROM 0.5 MG/2.5ML INH SOL NEB SCH ×6 (02:54→22:23)
[2020-05-16] MEDS: HYDROmorphone HCL 2 MG/ML VL IV PRN (03:44)
[2020-05-16] MEDS: InsuLIN REG 1unit/0.01ml Soln (100units/ml) SC SCH ×4 (06:00→18:30)
[2020-05-16] MEDS: ACCU-CHEK COMFORT CURVE STRIP VI SCH ×4 (06:15→12:16)
[2020-05-16] MEDS: SOD CHL 0.45% 1,000 ML IV SCH (06:17)
[2020-05-16 07:01] LABS: Albumin 1.6 g/dL (3.4-5.0); BUN/Creatinine Ratio 39.2; Bilirubin, Total 3.7 mg/dL (0.2-1.0); Calcium 7.7 mg/dL (8.5-10.1); Magnesium 2.4 mg/dL (1.6-2.6); Phosphorus 3.2 mg/dL (2.5-4.90)
[2020-05-16] MEDS: PANTOPRAZOLE 40 MG/10 ML VIAL INJ IV SCH ×2 (09:48→21:41)
[2020-05-16] MEDS: levoFLOXacin 250MG 50 ML IV SCH (09:48)
[2020-05-16] MEDS: MICAFUNGIN SODIUM 100 MG in SODIUM CHL 0.9% 100 ML IV SCH (10:35)
[2020-05-16] MEDS ORDERED: VANCOMYCIN 750mg/250ml 250 ML IV ONE (11:00)
[2020-05-16] MEDS ORDERED: FUROSEMIDE 20 MG/2 ML VIAL IV ONE (17:30)
[2020-05-16] MEDS ORDERED: TPN PER PHARMACY IV NR ×10 (20:00)
[2020-05-17] MEDS: InsuLIN REG 1unit/0.01ml Soln (100units/ml) SC SCH ×4 (01:18→17:14)
[2020-05-17 02:00] VITALS: BP 140/84
[2020-05-17] MEDS: IPRATROPIUM BROM 0.5 MG/2.5ML INH SOL NEB SCH ×6 (02:49→22:47)
[2020-05-17] MEDS: SOD CHL 0.45% 1,000 ML IV SCH (04:00)
[2020-05-17 05:00] VITALS: BP 139/80
[2020-05-17 06:13] LABS: Potassium 3.9 mmol/L (3.5-5.1)
[2020-05-17 06:20] LABS: Albumin 1.8 g/dL (3.4-5.0); BUN/Creatinine Ratio 36.4; Bilirubin, Total 4.8 mg/dL (0.2-1.0); Calcium 8.1 mg/dL (8.5-10.1); Total Protein 6.7 g/dL (6.4-8.2)
[2020-05-17] MEDS: ACCU-CHEK COMFORT CURVE STRIP VI SCH ×4 (06:29→17:15)
[2020-05-17] MEDS: DEXTROSE (50%) 50ML SYRG IV SCH ×2 (06:44→15:45)
[2020-05-17 08:45] LABS: Basophils # (auto) 0 10 ^3/uL (0-0.2); Eosinophils # (auto) 0 10 ^3/uL (0-0.8); Eosinophils % (auto) 0.4 % (0.0-7.0); Hemoglobin 9.4 g/dL (12.2-16.2); Lymphocytes # (auto) 0.4 10 ^3/uL (0.4-5.4)
[2020-05-17 08:48] LABS: Basophils % (auto) 0.2 % (0.0-2.0); Hematocrit 28.2 % (36.0-46.0); Lymphocytes % (auto) 4.3 % (10.0-50.0); Mean Corpuscular Hemoglobin 27.3 pg (28.0-32.0); Mean Corpuscular Hgb Conc. 33.3 g/dL (32.0-36.0); Monocytes # (auto) 0.7 10 ^3/uL (0-1.3); Monocytes % (auto) 6.8 % (0.0-12.0); Neutrophils # (auto) 9.3 10 ^3/uL (1.6-8.6); Neutrophils % (auto) 88.3 % (37.0-80.0); Platelet Count (auto) 73 10^3/uL (140-450); Red Blood Cells 3.44 10^6/uL (4.0-5.20); Red Cell Distribution Width 18.7 % (11.8-14.3); White Blood Cell 10.5 10^3/uL (4.4-10.8)
[2020-05-17 09:00] VITALS: BP 122/75
[2020-05-17] MEDS: levoFLOXacin 250MG 50 ML IV SCH (10:00)
[2020-05-17] MEDS: MICAFUNGIN SODIUM 100 MG in SODIUM CHL 0.9% 100 ML IV SCH (10:00)
[2020-05-17] MEDS: PANTOPRAZOLE 40 MG/10 ML VIAL INJ IV SCH ×2 (10:00→21:09)
[2020-05-17 13:00] VITALS: BP 128/79
[2020-05-17] MEDS ORDERED: GLUCAGON HYDROCHLORIDE (RDNA) 1 MG VIAL IM ONE (14:00)
[2020-05-17 14:25] LABS: INR 1.88 (0.9-1.15)
[2020-05-17] MEDS ORDERED: LIDOCAINE 1% (LOCAL ANESTH.) PF 5ml SDV ID ONE (15:30)
[2020-05-17 17:00] VITALS: BP 110/71
[2020-05-17] MEDS ORDERED: TPN PER PHARMACY IV NR ×10 (20:00)
[2020-05-17 20:54] LABS: Lactic Acid w/Reflex 3.5 mmol/L (0.4-2.0)
[2020-05-17] MEDS: SODIUM CHLOR 0.9% PF (SALINE LOCK) 10ML VIAL/SYR IV SCH (21:11)
[2020-05-17 22:00] VITALS: BP 119/75
[2020-05-18] MEDS: SOD CHL 0.45% 1,000 ML IV SCH (00:24)
[2020-05-18] MEDS: InsuLIN REG 1unit/0.01ml Soln (100units/ml) SC SCH ×3 (00:31→12:00)
[2020-05-18] MEDS: ACCU-CHEK COMFORT CURVE STRIP VI SCH ×3 (00:32→12:39)
[2020-05-18] MEDS: IPRATROPIUM BROM 0.5 MG/2.5ML INH SOL NEB SCH ×4 (02:00→14:20)
[2020-05-18 05:00] VITALS: BP 127/68
[2020-05-18 07:19] LABS: Albumin 1.7 g/dL (3.4-5.0); Magnesium 2.2 mg/dL (1.6-2.6); Potassium 3.9 mmol/L (3.5-5.1)
[2020-05-18 07:21] LABS: BUN/Creatinine Ratio 36.4
[2020-05-18 07:24] LABS: Bilirubin, Total 4.8 mg/dL (0.2-1.0); Phosphorus 5.1 mg/dL (2.5-4.90); Total Protein 6.7 g/dL (6.4-8.2)
[2020-05-18] MEDS: levoFLOXacin 250MG 50 ML IV SCH (10:17)
[2020-05-18] MEDS: PANTOPRAZOLE 40 MG/10 ML VIAL INJ IV SCH (10:17)
[2020-05-18] MEDS: SODIUM CHLOR 0.9% PF (SALINE LOCK) 10ML VIAL/SYR IV SCH (10:17)
[2020-05-18] MEDS ORDERED: LIDOCAINE 2%HCL (LOCAL ANESTH.) INJ 10ml MDV IJ ONE (13:15)
[2020-05-18 14:14] VITALS: BP 127/68
[2020-05-18] MEDS: HYDROmorphone HCL 2 MG/ML VL IV PRN (14:18)
[2020-05-18] MEDS ORDERED: ETOMIDATE (2MG/ML) 20ML VIAL IV ONE (15:54)
[2020-05-18] MEDS ORDERED: SUCCINYLCHOLINE CHLORIDE 20 MG/ML 10ML VIAL IV ONE (15:54)
[2020-05-18] MEDS ORDERED: NOREPINEPHRINE 8 MG/250ML KIT 250 ML IV ONE (16:05)
[2020-05-18] MEDS ORDERED: SODIUM BICARBONATE 8.4 % INJ 50ML VIAL IV ONE (16:45)
[2020-05-18 17:21] VITALS: BP 170/33
[2020-05-18] MEDS ORDERED: EPINEPHrine HCL 1 MG/10 ML SYRG IV ONE (19:32)
[2020-05-18] MEDS ORDERED: SODIUM BICARBONATE 8.4% INJ 50ML SYRINGE IV ONE (19:32)
[2020-05-18] MEDS ORDERED: CALCIUM CHLOR(10%) 100MG/ML 10ML SYRINGE IV ONE (19:32)
[2020-05-18] MEDS ORDERED: TPN PER PHARMACY IV NR ×10 (20:00)
== END 2020-05-18 16:57 | disposition expired | DRG 870 ==
LOC: ER 15:00 → EDBD 15:00 → TELE 15:01 → ICU WEST 20:40 → TELE-WESTW 05-08 12:56 → DOU IN ICU 05-10 17:35 → TELE-EAST 05-15 14:15
PROVIDERS: ADMIT Hospitalist; ATTEND Family Medicine
PROC: 5A1955Z Respiratory Ventilation, Greater than 96 Consecutive Hours (ICD-10-PCS; principal; 2020-04-29)
PROC: 0BH17EZ Insertion of Endotracheal Airway into Trachea, Via Natural or Artificial Opening (ICD-10-PCS; 2020-04-29)
PROC: 0W9930Z Drainage of Right Pleural Cavity with Drainage Device, Percutaneous Approach (ICD-10-PCS; 2020-04-29)
PROC: 0T9B70Z Drainage of Bladder with Drainage Device, Via Natural or Artificial Opening (ICD-10-PCS; 2020-04-30)
PROC: 02HV33Z Insertion of Infusion Device into Superior Vena Cava, Percutaneous Approach (ICD-10-PCS; 2020-04-30)
PROC: 30233N1 Transfusion of Nonautologous Red Blood Cells into Peripheral Vein, Percutaneous Approach (ICD-10-PCS; 2020-05-01)
PROC: 0B9C8ZX Drainage of Right Upper Lung Lobe, Via Natural or Artificial Opening Endoscopic, Diagnostic (ICD-10-PCS; 2020-05-01)
PROC: 0BJ08ZZ Inspection of Tracheobronchial Tree, Via Natural or Artificial Opening Endoscopic (ICD-10-PCS; 2020-05-01)
PROC: 0BBC3ZX Excision of Right Upper Lung Lobe, Percutaneous Approach, Diagnostic (ICD-10-PCS; 2020-05-04)
PROC: 5A09357 Assistance with Respiratory Ventilation, Less than 24 Consecutive Hours, Continuous Positive Airway Pressure (ICD-10-PCS; 2020-05-10)
PROC: 5A12012 Performance of Cardiac Output, Single, Manual (ICD-10-PCS; 2020-05-18)
DX: A40.8 Other streptococcal sepsis (principal); R65.21 Severe sepsis with septic shock; J18.9 Pneumonia, unspecified organism; N17.0 Acute kidney failure with tubular necrosis; I21.4 Non-ST elevation (NSTEMI) myocardial infarction; E43 Unspecified severe protein-calorie malnutrition; G93.41 Metabolic encephalopathy; J96.21 Acute and chronic respiratory failure with hypoxia; J95.811 Postprocedural pneumothorax; E87.2 Acidosis; I13.0 Hypertensive heart and chronic kidney disease with heart failure and stage 1 through stage 4 chronic kidney disease, or unspecified chronic kidney disease; R64 Cachexia; C34.11 Malignant neoplasm of upper lobe, right bronchus or lung; C34.12 Malignant neoplasm of upper lobe, left bronchus or lung; E87.0 Hyperosmolality and hypernatremia; E87.4 Mixed disorder of acid-base balance; J44.1 Chronic obstructive pulmonary disease with (acute) exacerbation; D63.8 Anemia in other chronic diseases classified elsewhere; R62.7 Adult failure to thrive; E86.0 Dehydration; F03.90 Unspecified dementia, unspecified severity, without behavioral disturbance, psychotic disturbance, mood disturbance, and anxiety; Z03.818 Encounter for observation for suspected exposure to other biological agents ruled out; N18.3 Chronic kidney disease, stage 3 (moderate); I95.9 Hypotension, unspecified; F02.80 Dementia in other diseases classified elsewhere, unspecified severity, without behavioral disturbance, psychotic disturbance, mood disturbance, and anxiety; F17.200 Nicotine dependence, unspecified, uncomplicated; I67.2 Cerebral atherosclerosis; Z51.5 Encounter for palliative care; Z83.3 Family history of diabetes mellitus; E78.00 Pure hypercholesterolemia, unspecified; E78.5 Hyperlipidemia, unspecified; E87.6 Hypokalemia; I25.10 Atherosclerotic heart disease of native coronary artery without angina pectoris; I50.9 Heart failure, unspecified; M19.90 Unspecified osteoarthritis, unspecified site; Z87.828 Personal history of other (healed) physical injury and trauma; Z79.899 Other long term (current) drug therapy; Z95.1 Presence of aortocoronary bypass graft; Z82.49 Family history of ischemic heart disease and other diseases of the circulatory system; Z68.20 Body mass index [BMI] 20.0-20.9, adult; Z88.2 Allergy status to sulfonamides; I46.9 Cardiac arrest, cause unspecified; I49.01 Ventricular fibrillation
CPT/HCPCS: 10022; 32551; 36415; 36569; 36600; 70450; 71045; 71250; 76604; 76705; 76775; 76942; 80048; 80053; 80076; 80202; 80307; 80320; 81001; 82040; 82553; 82565; 82570; 82607; 82728; 82746; 82805; 82962; 83036; 83605; 83615; 83735; 83880; 84075; 84100; 84132; 84300; 84443; 84460; 84478; 84484; 85014; 85018; 85025; 85379; 85610; 85730; 86141; 86704; 86706; 86708; 86803; 86850; 86900; 86901; 86920; 87040; 87070; 87077; 87081; 87086; 87186; 87205; 87340; 87804; 87880; 93306; 93970; 94002; 94003; 94640; 94660; 99291; C9113; G0378; J0171; J0330; J0696; J1815; J1956; J2001; J2185; J2248; J2250; J2543; J3430; J3480; J3490; J7060; P9047